=== PATIENT | male | born 1975 | race Caucasian/White ===

== ENCOUNTER 2016-11-16 11:55 | Emergency (ER) | payer MEDICARE, OTHER ==
[~2016-11-16] VITALS: Ht 170.2 cm; Wt 69.0 kg
[2016-11-16 11:58] VITALS: Ht 170.2 cm; Wt 69.0 kg
--- NOTE | 2016-11-16 13:11 | ERD ---
ER Documentation Chief Complaint Date/Time DATE: 11/16/16 TIME: 13:10 Chief Complaint MED REFILL ON KLONIPIN 2MG HPI Patient is a 41-year-old male with anxiety and depression who presents saying that he wants a prescription for Klonopin. He said that he was in [facility] longterm for 1 month and got discharged does not have his Klonopin. He says that he has to wait until Monday to get an appointment with his doctor Dr. Ugalde so he came to the emergency department. Upon review of old medical records the patient has one previous visit to the ER in 2010. ROS All systems reviewed and are negative except as per history of present illness. Allergies Allergies: Coded Allergies: No Known Allergy (Unverified , 11/16/16) PMhx/Soc History of Surgery: Yes (BACK) Hx Psychiatric Problems: Yes (BORDERLINE PERSONALITY) Hx Alcohol Use: Yes Hx Substance Use: Yes (HX OF OPIOID) Hx Tobacco Use: Yes Smoking Status: Current every day smoker FmHx Family History: diabetes Physical Exam Vitals Vital Signs Date Time Temp Pulse Resp B/P Pulse Ox O2 Delivery O2 Flow Rate FiO2 11/16/16 11:58 98.2 112 20 113/60 99 Physical Exam Const: No acute distress Head: Atraumatic Eyes: Normal Conjunctiva ENT: Normal External Ears, Nose and Mouth. Neck: Full range of motion..~ No meningismus. Resp: Clear to auscultation bilaterally Cardio: Regular rate and rhythm, no murmurs Abd: Soft, non tender, non distended. Normal bowel sounds Skin: No petechiae or rashes Back: No midline or flank tenderness Ext: No cyanosis, or edema Neur: Awake and alert Psych: Anxious but no suicidal or homicidal ideations, no tremulousness Procedures/MDM Smoking Cessation Therapy: Pt. was lectured for greater than 3 minutes on the health risks of continued smoking and the benefits of cessation. Patient is a 41-year-old male with anxiety who presents for a prescription of Klonopin. I told her that I will not give him Klonopin is a controlled substance. He will need to follow-up with his primary doctor for any refills of this medication. He can return for any worsening symptoms. I doubt benzodiazepine withdrawal at this time. There is no sign of delirium tremens at this time. Departure Diagnosis: Primary Impression: Anxiety Condition: Fair Patient Instructions: Understanding Anxiety Disorders Referrals: Dr. Ugalde Additional Instructions: Call your primary care doctor TOMORROW for an appointment during the next 1-2 days.See the doctor sooner or return here if your condition worsens before your appointment time. MIGUELANGEL BARTON MD November 16, 2016 13:11
== END 2016-11-16 12:15 | disposition home or self-care (01) ==
LOC: E/R 11:55
DX: F41.9 Anxiety disorder, unspecified (principal); F17.210 Nicotine dependence, cigarettes, uncomplicated
CPT/HCPCS: 99282